=== PATIENT | female | born 1980 | race American Indian/Alaskan Native ===

== ENCOUNTER 2017-03-18 08:43 | Emergency (ER) | payer MEDICAID, OTHER ==
[2017-03-18] MEDS ORDERED: TYLENOL PO ONE (09:24)
[2017-03-18] MEDS ORDERED: TYLENOL ONE (09:29)
[2017-03-18] MEDS ORDERED: FLEXERIL PO ONE (11:59)
[2017-03-18] MEDS ORDERED: TORADOL IM ONE (11:59)
[2017-03-18] MEDS ORDERED: ZOFRAN ODT PO ONE (12:16)
--- NOTE | 2017-03-18 12:18 | Emergency Department Report ---
HPI - General Chief Complaint: Back Pain/Injury Time Seen by Provider: 03/18/17 11:50 - HPI HPI: 36-year-old female presents today complaining of lower back pain 7 this morning. Patient states that she bent down to put on her shoes and since had this pain all across her back. Positive for history of similar symptoms and was seen at [facility], no imaging done, treated with pain medication. Positive for nausea due to pain. Denies radiation of pain. Denies numbness, weakness, paresthesias. Denies bowel or bladder incontinence. Rates her pain as a 10 on a 10 sharp pain. Tried Tylenol without relief. Denies fever, chills , nausea, vomiting, chest pain, shortness of breath, abdominal pain. ED Past Medical Hx - Past Medical History Hx Hypertension: Yes (PIH, Pt still on labetalol, took last PM) Hx Congestive Heart Failure: No Hx Diabetes: No Hx Deep Vein Thrombosis: No Hx Renal Disease: No Hx Sickle Cell Disease: No Hx Headaches / Migraines: Yes (migraines) Hx Seizures: No Hx Asthma: No Hx COPD: No Hx HIV: No Additional medical history: fibroid. polyp - Surgical History Hx Breast Surgery: Yes (left lumpectomy) Additional Surgical History: left breast lumpectomy - Social History Smoking Status: Never Smoker Substance Use Type: None - Medications Home Medications: Home Medications Medication Instructions Recorded Confirmed Last Taken Type Vit-Fe Fumar-FA [ 1 tab PO QDAY 06/22/14 01/03/15 01/02/15 19: 30 History Vitamin] Labetalol [Normodyne TAB] 200 mg PO TID 01/01/15 01/03/15 01/02/15 19:30 History Ibuprofen [Motrin 800 MG tab] 800 mg PO Q8HR PRN #60 tablet 01/03/15 Unknown Rx oxyCODONE /ACETAMINOPHEN [Percocet 1 tab PO Q6HR PRN #30 tablet 01/03/15 Unknown Rx 5/325 mg] Cyclobenzaprine [Flexeril] 10 mg PO TID PRN #20 tablet 03/18/17 Unknown Rx Naproxen [Naprosyn] 500 mg PO BID #30 tablet 03/18/17 Unknown Rx ED Review of Systems ROS: Stated complaint: LOWER BACK PAIN Other details as noted in HPI Constitutional: denies: chills, fever, malaise Eyes: denies: eye pain ENT: denies: ear pain, throat pain, congestion Respiratory: denies: cough, shortness of breath, wheezing Cardiovascular: denies: chest pain, palpitations Endocrine: no symptoms reported Gastrointestinal: nausea. denies: abdominal pain, vomiting Musculoskeletal: back pain Skin: denies: rash Neurological: denies: headache, weakness, numbness, paresthesias Psychiatric: denies: anxiety, depression Physical Exam - Physical Exam Vital Signs: Vital Signs 03/18/17 03/18/17 09:18 12:04 Temperature 98.7 F Pulse Rate 63 Respiratory 16 18 Rate Blood Pressure 138/69 O2 Sat by Pulse 100 Oximetry Physical Exam: GENERAL: The patient is well-developed and well-nourished. Patient is in NAD. HEAD: Normocephalic. Atraumatic. NECK: Supple, nontender, without lymphadenopathy. No meningitic signs are noted. No vertebral or paraspinal tenderness to palpation. BACK: Limited range of motion due to pain. Positive for midline tenderness to palpation of lumbar region. Right-sided paraspinal tenderness to palpation in lumbar region. No tenderness to palpation of sciatic notch bilaterally. Positive for right-sided straight leg raise. CHEST/LUNGS: Clear to auscultation throughout. HEART/CARDIOVASCULAR: Regular rate and rhythm. No murmurs, rubs or gallops. ABDOMEN: Abdomen is soft, nontender. Bowel sounds normoactive. No guarding or rebound tenderness. EXTREMITIES: No cyanosis, clubbing or edema. Peripheral pulses intact. Capillary refill less than 2 seconds. NEURO: Alert and oriented x 3. GCS score of 15. ED Course Vital Signs 03/18/17 03/18/17 09:18 12:04 Temperature 98.7 F Pulse Rate 63 Respiratory 16 18 Rate Blood Pressure 138/69 O2 Sat by Pulse 100 Oximetry ED Medical Decision Making - Lab Data Vital Signs 03/18/17 03/18/17 09:18 12:04 Temperature 98.7 F Pulse Rate 63 Respiratory 16 18 Rate Blood Pressure 138/69 O2 Sat by Pulse 100 Oximetry - Radiology Data Radiology results: report reviewed Lumbar spine: Back pain. Minimal anterior traction spurs are noted at the superior margins of L1, L3, and L4. Vertebral height, alignment, and interspaces are preserved. The bones are well-mineralized. Incidental note are bilateral fallopian tube occlusion clips. Impression: Mild spondylosis. No acute findings identified. - Medical Decision Making 36-year-old female presents today complaining of lower back pain post bending down to put her shoes on. Positive for history of similar symptoms but hasn't been worked up. Her x-ray results reveal no acute findings. Mild spondylosis was noted. Patient has been provided with a referral for orthopedic to follow- up with.Patient is in no acute distress at this time. She will be discharged home and is encouraged to follow up with a primary care provider. She will be sent home on Flexeril and Naprosyn and is encouraged to return to the emergency room for any worsening symptoms. Critical care attestation.: If time is entered above; I have spent that time in minutes in the direct care of this critically ill patient, excluding procedure time. ED Disposition Clinical Impression: Low back strain Qualifiers: Encounter type: initial encounter Qualified Code(s): S39.012A - Strain of muscle, fascia and tendon of lower back, initial encounter Disposition: TO HOME OR SELFCARE Is pt being admited?: No Does the pt Need Aspirin: No Condition: Stable Instructions: Low Back Strain (ED) Additional Instructions: Follow-up with primary care provider. Return to the emergency department if symptoms worsen. Prescriptions: Cyclobenzaprine [Flexeril] 10 mg PO TID PRN #20 tablet PRN Reason: Muscle Spasm Naproxen [Naprosyn] 500 mg PO BID #30 tablet Referrals: ALEXIS VINCENT MD [Primary Care Provider] - 3-5 Days ALEX MUSA MD [Staff Physician] - 3-5 Days Forms: Work/School Release Form(ED) Time of Disposition: 13:21
--- NOTE | 2017-03-18 13:13 | XRay Report ---
Lumbar spine: Back pain. Minimal anterior traction spurs are noted at the superior margins of L1, L3, and L4. Vertebral height, alignment, and interspaces are preserved. The bones are well-mineralized. Incidental note are bilateral fallopian tube occlusion clips. Impression: Mild spondylosis. No acute findings identified.
[2017-03-18 13:35] VITALS: BP 134/68
== END 2017-03-18 13:35 | disposition home or self-care (01) ==
LOC: ED 08:43
DX: S39.012A Strain of muscle, fascia and tendon of lower back, initial encounter (principal); G43.909 Migraine, unspecified, not intractable, without status migrainosus; I10 Essential (primary) hypertension; X50.9XXA Other and unspecified overexertion or strenuous movements or postures, initial encounter; X50.1XXA Overexertion from prolonged static or awkward postures, initial encounter; Y93.89 Activity, other specified; Y92.89 Other specified places as the place of occurrence of the external cause; Y99.8 Other external cause status; Z88.8 Allergy status to other drugs, medicaments and biological substances
CPT/HCPCS: 72100; 96372; 99283; J1885; Q0162

== ENCOUNTER 2017-06-11 09:47 | Emergency (ER) | payer OTHER ==
[2017-06-11 11:03] LABS: Bilirubin,Urine NEG (Negative); Blood,Urine SM (Negative); Color,Urine Yellow (Yellow); Mucus,Urine FEW /HPF; Nitrite,Urine NEG (Negative); Protein,Urine <15 mg/dL mg/dL (Negative); Urobilinogen,Urine < 2.0 mg/dL (<2.0)
[2017-06-11 11:13] LABS: HCG Qualitative,Urine Negative (Negative)
--- NOTE | 2017-06-11 14:49 | Emergency Department Report ---
ED Female HPI - General Chief complaint: Urogenital-Female Stated complaint: PELVIC PAIN Source: patient Mode of arrival: Ambulatory Limitations: No Limitations - History of Present Illness Initial comments: 36 y/o nontoxic in appearance F presents to the ER complaining of yellow vagina discharge, dysuria, and pelvic pain. She states that the discharge and dysuria has been on going for over a week, but the pelvic pain only started this morning. pt states that she was given diflucan by another physician with no relief of the symptoms. pt reports to a 5/10 in severity pain at this time. Pt states that she has also been trying azo with not much relief of symptoms. Pt denies any fever, chills, nausea, vomiting, body aches/muscles aches, LBP, frequency, or urgency. Hx of fibroids and polyps in the past. LMP: May; she reports to vaginal itching and states that it may be due to tampons as she states that as a child she had such itching sensation with tampon use, she states that all tampons were removed. Concern for STD, no hx of past STD. Allergy to codeine. MD Complaint: vaginal discharge, dysuria, pelvic pain, possible STD -: week(s) (1) Location: suprapubic Radiation: suprapubic Severity: moderate Severity scale (0 -10): 5 Quality: dull Consistency: intermittent Improves with: none Worsens with: none Associated Symptoms: vaginal discharge, dysuria - Related Data Sexually active: Yes Home Medications Medication Instructions Recorded Confirmed Last Taken Vit-Fe Fumar-FA [ 1 tab PO QDAY 06/22/14 01/03/15 01/02/15 19: 30 Vitamin] Labetalol [Normodyne TAB] 200 mg PO TID 01/01/15 01/03/15 01/02/15 19:30 Previous Rx's Medication Instructions Recorded Last Taken Type Ibuprofen [Motrin 800 MG tab] 800 mg PO Q8HR PRN #60 tablet 01/03/15 Unknown Rx oxyCODONE /ACETAMINOPHEN [Percocet 1 tab PO Q6HR PRN #30 tablet 01/03/15 Unknown Rx 5/325 mg] Cyclobenzaprine [Flexeril] 10 mg PO TID PRN #20 tablet 03/18/17 Unknown Rx Naproxen [Naprosyn] 500 mg PO BID #30 tablet 03/18/17 Unknown Rx Doxycycline Hyclate [Doxycycline 100 mg PO Q12HR #28 tab 06/11/17 Unknown Rx Hyclate TAB] metroNIDAZOLE [Flagyl] 500 mg PO Q12HR #28 tab 06/11/17 Unknown Rx Allergies Allergy/AdvReac Type Severity Reaction Status Date / Time codeine AdvReac Itching Verified 06/11/17 10:00 ED Review of Systems ROS: Stated complaint: PELVIC PAIN Other details as noted in HPI Constitutional: denies: chills, fever Eyes: denies: eye pain, eye discharge, vision change ENT: denies: ear pain, throat pain Respiratory: denies: cough, shortness of breath, wheezing Cardiovascular: denies: chest pain, palpitations Gastrointestinal: denies: abdominal pain, nausea, diarrhea Genitourinary: dysuria, discharge. denies: urgency Musculoskeletal: denies: back pain, joint swelling, arthralgia Skin: denies: rash, lesions Neurological: denies: headache, weakness, paresthesias Psychiatric: denies: anxiety, depression Hematological/Lymphatic: denies: easy bleeding, easy bruising ED Past Medical Hx - Past Medical History Hx Hypertension: Yes (PIH, Pt still on labetalol, took last PM) Hx Congestive Heart Failure: No Hx Diabetes: No Hx Deep Vein Thrombosis: No Hx Renal Disease: No Hx Sickle Cell Disease: No Hx Headaches / Migraines: Yes (migraines) Hx Seizures: No Hx Asthma: No Hx COPD: No Hx HIV: No Additional medical history: fibroid. polyp - Surgical History Past Surgical History?: Yes Hx Breast Surgery: Yes (left lumpectomy) Additional Surgical History: left breast lumpectomy - Social History Smoking Status: Never Smoker Substance Use Type: None - Medications Home Medications: Home Medications Medication Instructions Recorded Confirmed Last Taken Type Vit-Fe Fumar-FA [ 1 tab PO QDAY 06/22/14 01/03/15 01/02/15 19: 30 History Vitamin] Labetalol [Normodyne TAB] 200 mg PO TID 01/01/15 01/03/15 01/02/15 19:30 History Ibuprofen [Motrin 800 MG tab] 800 mg PO Q8HR PRN #60 tablet 01/03/15 Unknown Rx oxyCODONE /ACETAMINOPHEN [Percocet 1 tab PO Q6HR PRN #30 tablet 01/03/15 Unknown Rx 5/325 mg] Cyclobenzaprine [Flexeril] 10 mg PO TID PRN #20 tablet 03/18/17 Unknown Rx Naproxen [Naprosyn] 500 mg PO BID #30 tablet 03/18/17 Unknown Rx Doxycycline Hyclate [Doxycycline 100 mg PO Q12HR #28 tab 06/11/17 Unknown Rx Hyclate TAB] metroNIDAZOLE [Flagyl] 500 mg PO Q12HR #28 tab 06/11/17 Unknown Rx ED Physical Exam - General Limitations: No Limitations General appearance: alert, in no apparent distress - Head Head exam: Present: atraumatic, normocephalic - Eye Eye exam: Present: normal appearance - ENT ENT exam: Present: mucous membranes moist - Neck Neck exam: Present: normal inspection - Respiratory Respiratory exam: Present: normal lung sounds bilaterally. Absent: respiratory distress - Cardiovascular Cardiovascular Exam: Present: regular rate, normal rhythm. Absent: systolic murmur, diastolic murmur, rubs, gallop - GI/Abdominal GI/Abdominal exam: Present: soft, other (suprapubic tendnerness) - External exam: Present: normal external exam, other (bright cutter was present during speculum and bi-manual examinations) Speculum exam: Present: vaginal discharge (profuse frothy yellow-green discharge noted, that was covering close to 40% of the cervix) Bi-manual exam: Present: cervical motion tendernes, uterine tenderness ( appeared to be consistent with PID), other (no evidence of foreign bodies). Absent: uterine enlargement - Extremities Exam Extremities exam: Present: normal inspection - Back Exam Back exam: Present: normal inspection, full ROM, other (no CVAT b/l, no LBP) - Neurological Exam Neurological exam: Present: alert, oriented X3, CN II-XII intact, normal gait - Expanded Neurological Exam Expanded Patient oriented to: Present: person, place, time Speech: Present: fluid speech Best Eye Response ([place]): (4) open spontaneously Best Motor Response ([place]atalya): (6) obeys commands Best Verbal Response ([place]): (5) oriented Natalya Total: 15 - Psychiatric Psychiatric exam: Present: normal affect, normal mood - Skin Skin exam: Present: warm, dry, intact, normal color. Absent: rash ED Course Vital Signs 06/11/17 06/11/17 09:57 16:23 Temperature 98.6 F 98.2 F Pulse Rate 68 68 Respiratory 16 18 Rate Blood Pressure 125/50 Blood Pressure 133/80 [Right] O2 Sat by Pulse 98 100 Oximetry ED Medical Decision Making - Medical Decision Making I will treat as a PID infection at this time, as she had suprapubic pain and mild pain on bimanual examination. I will treat today pending the GC/chlaymdia results. I will treat with ceftriaxone and doxycycline at this time. I will also give flagyl as the wet prep was positive for Trichomonas and BV. Urinanalysis showed small blood and leukocytes, no nitrites at this time. I will send out a urine culture at this time to confirm a UTI and we will treat if bacterial growth is evident. Pt was encouraged to follow-up with OBGYN within the week, she was discharged in stable condition, alert and oriented, no resp distress, speaking in full sentences. I spoke with the attending regarding this case, he does not recommend Ultrasound imaging at this time. Advised to try pads instead of tampons, since she states that tampons are causing itching and skin irritation. Critical care attestation.: If time is entered above; I have spent that time in minutes in the direct care of this critically ill patient, excluding procedure time. ED Disposition Clinical Impression: Bacterial vaginosis, Trichomonal infection Disposition: - TO HOME OR SELFCARE Is pt being admited?: No Does the pt Need Aspirin: No Condition: Stable Instructions: Doxycycline (By mouth), Metronidazole (By mouth), Ceftriaxone ( Injection), Pelvic Inflammatory Disease (ED), Bacterial Vaginosis (ED), Safe Sex (ED), Trichomoniasis (ED) Additional Instructions: Please complete your full course of antibiotic. Please do not drink alcohol while on the flagyl and 2 weeks after. Please take probiotic with this medication. Please follow-up with OBGYN within 1 week. PCP follow-up within 3- 5 days. Return to the ER immediately if your presenting symptoms acutely progress or worsen. Prescriptions: Doxycycline Hyclate [Doxycycline Hyclate TAB] 100 mg PO Q12HR #28 tab metroNIDAZOLE [Flagyl] 500 mg PO Q12HR #28 tab Referrals: PRIMARY CAREMD [Primary Care Provider] - 3-5 Days KANDIS STYLES MD [Staff Physician] - 3-5 Days MAKEDA MATHEW MD [Staff Physician] - 3-5 Days [facility] [Outside] - 3-5 Days [facility] [Outside] - 3-5 Days Forms: STI Treatment and Prevention, Work/School Release Form(ED)
[2017-06-11] MEDS ORDERED: ROCEPHIN IM ONE (15:41)
[2017-06-11] MEDS ORDERED: XYLOCAINE 1% MPF 5 mL INFILTRATI ONE (15:41)
[2017-06-11 16:23] VITALS: BP 133/80
== END 2017-06-11 16:23 | disposition home or self-care (01) ==
LOC: ED 09:47
DX: A59.8 Trichomoniasis of other sites (principal); N76.0 Acute vaginitis; B96.89 Other specified bacterial agents as the cause of diseases classified elsewhere; I10 Essential (primary) hypertension; G43.909 Migraine, unspecified, not intractable, without status migrainosus; Z88.5 Allergy status to narcotic agent
CPT/HCPCS: 81001; 81025; 87086; 87210; 87591; 96372; 99284; J0696

== ENCOUNTER 2017-07-12 20:12 | Emergency (ER) | payer OTHER ==
[2017-07-12 20:37] VITALS: BP 155/99
[2017-07-12 21:22] LABS: Eosinophils # (Auto) 0.1 K/mm3 (0.0-0.4); Eosinophils % (Auto) 2.4 % (0.0-4.3); Hematocrit 36.6 % (30.3-42.9); Hemoglobin 12.5 gm/dl (10.1-14.3); Lymphocytes # (Auto) 0.9 K/mm3 (1.2-5.4); Lymphocytes % (Auto) 22.3 % (13.4-35.0); Mean Corpuscular HGB Conc 34 % (30-34); Mean Corpuscular Hemoglobin 32 pg (28-32); Mean Corpuscular Volume 94 fl (79-97); Monocytes # (Auto) 0.4 K/mm3 (0.0-0.8); Monocytes % (Auto) 8.5 % (0.0-7.3); Platelet Count 280 K/mm3 (140-440); Red Blood Count 3.88 M/mm3 (3.65-5.03); Red Cell Distribution Width 12.3 % (13.2-15.2)
[2017-07-12 21:45] LABS: Alanine Aminotransferase 27 units/L (7-56); Albumin 4.4 g/dL (3.9-5); BUN/Creatinine Ratio 20; Blood Urea Nitrogen 8 mg/dL (7-17); Calcium 8.8 mg/dL (8.4-10.2); Hemolysis Index 6; Lipase 18 units/L (13-60)
== END 2017-07-13 02:00 | disposition left against medical advice (07) ==
LOC: ED 20:12
DX: R10.9 Unspecified abdominal pain (principal); Z53.21 Procedure and treatment not carried out due to patient leaving prior to being seen by health care provider
CPT/HCPCS: 36415; 80048; 80053; 82150; 83690; 85025

== ENCOUNTER 2021-06-24 06:13 | Observation (INO) | payer BC, OTHER ==
--- NOTE | 2021-06-18 09:52 | Anesthesia Consultation ---
Anesthesia Consult and Med Hx Date of service: 06/24/21 - Airway Anesthetic Teeth Evaluation: Good ROM Head & Neck: Adequate Mental/Hyoid Distance: Adequate Mallampati Class: Class II Intubation Access Assessment: Good - Pre-Operative Health Status ASA Pre-Surgery Classification: ASA2 Proposed Anesthetic Plan: General Nerve Block: TAP - Pulmonary Hx Smoking: No Hx Asthma: No Hx Respiratory Symptoms: No (+2FS) COPD: No Hx Pneumonia: No - Cardiovascular System Hx Hypertension: Yes (PIH ) Hx Heart Murmur: Yes ("resolved") - Central Nervous System Hx Seizures: No Hx Psychiatric Problems: No - Gastrointestinal Hx Gastroesophageal Reflux Disease: No (S/P Gastric bypass 2013) - Endocrine Hx Renal Disease: No Hx Hypothyroidism: No Hx Hyperthyroidism: No - Hematic Hx Anemia: Yes Hx Sickle Cell Disease: No - Other Systems Hx Alcohol Use: Yes (Occas) Hx Cancer: No Hx Obesity: Yes
[2021-06-18 09:57] LABS: Hematocrit 27.1 % (30.3-42.9); Hemoglobin 8.3 gm/dl (10.1-14.3); Mean Corpuscular HGB Conc 31 % (30-34); Mean Corpuscular Volume 75 fl (79-97); Platelet Count 380 K/mm3 (140-440); Red Blood Count 3.63 M/mm3 (3.65-5.03); Red Cell Distribution Width 19.2 % (13.2-15.2)
[2021-06-18 16:57] LABS: Eosinophils # (Auto) 0.1 K/mm3 (0.0-0.4); Eosinophils % (Auto) 2.5 % (0.0-4.3); Monocytes # (Auto) 0.5 K/mm3 (0.0-0.8)
[2021-06-18 17:01] LABS: Lymphocytes % (Auto) 11.8 % (13.4-35.0)
[2021-06-18 17:02] LABS: Basophils % (Auto) 0.8 % (0.0-1.8); Monocytes % (Auto) 11.8 % (0.0-7.3)
[~2021-06-24 06:13] MED LIST: ACETAMINOPHEN 500 MG TAB PO NR; BUPIVACAINE/PF (0.25%) 2.5 MG/ML 30 ML VIAL INFILTRATI NR; CELECOXIB 200 MG CAP PO NR; GABAPENTIN 300 MG CAP PO NR; LACTATED RINGERS 1,000 ML IV SCH; MAGNESIUM OXIDE 400 MG TAB PO NR; dexAMETHasone 4 MG/ML VIAL IV NR; fentaNYL 100 MCG/2 ML INJ IV NR
[2021-06-24] MEDS ORDERED: NEOMY 40 MG/POLYMYXIN B 200,000 UNITS/ML (GU) AMPULE IR ONE ×2 (07:15→09:06)
[2021-06-24] MEDS ORDERED: propofoL 200 MG/20 ML VIAL IV ONE (07:23)
[2021-06-24] MEDS ORDERED: LIDOCAINE MPF (2%) 20 MG/1 ML VIAL 5 ML ONE (07:23)
[2021-06-24] MEDS ORDERED: fentaNYL 100 MCG/2 ML INJ ONE (07:23)
[2021-06-24] MEDS ORDERED: ROCURONIUM 50 MG/5 ML INJ IV ONE (07:23)
[2021-06-24] MEDS ORDERED: SODIUM CHLORIDE 0.9% 500 ML 500 ML IV NR (07:23)
--- NOTE | 2021-06-24 07:26 | Short Stay Summary ---
Short Stay Documentation Date of service: 06/24/21 Narrative H&P: 41-year-old -1-0-2 with a history of dysfunctional uterine bleeding. The patient has experienced 6 significant menorrhagia that has contributed to her iron deficiency anemia with a current hemoglobin of 8.3. Patient has attempted medical management without significant improvement in her symptoms. She has no future desire for childbearing and has elected to undergo definitive surgical management. - History Principal diagnosis: Dysfunctional uterine bleeding Past Medical History: No medical history Past Surgical History: , Other (Gastric bypass surgery; tubal ligation my: Lumpectomy of left breast) Social history: single - Allergies and Medications Current Medications: Allergies codeine Adverse Reaction (Verified 06/17/21 16:12) Itching Home Medications Medication Instructions Recorded Confirmed Last Taken Type No Known Home Medications [No 06/17/21 06/17/21 Unknown History Reported Home Medications] Active Medications Acetaminophen (Acetaminophen 500 Mg Tab) 1,000 mg PO ONCE NR Stop: 06/24/21 20:00 Bupivacaine HCl (Bupivacaine/Pf (0.25%) 2.5 Mg/Ml 30 Ml Vial) 60 ml INFILTRATI ONCE NR Stop: 06/24/21 20:00 Celecoxib (Celecoxib 200 Mg Cap) 400 mg PO PREOP NR Stop: 06/24/21 20:00 Dexamethasone (Dexamethasone 4 Mg/Ml Vial) 8 mg IV PREOP NR Stop: 06/24/21 20:00 Fentanyl (Fentanyl 100 Mcg/2 Ml Inj) 100 mcg IV ONCE NR Stop: 06/24/21 20:00 Gabapentin (Gabapentin 300 Mg Cap) 300 mg PO PREOP NR Stop: 06/24/21 20:00 Lactated Ringer's (Lactated Ringers) 1,000 mls @ 125 mls/hr IV DIRECT RONNA Magnesium Oxide (Magnesium Oxide 400 Mg Tab) 400 mg PO ONCE NR Stop: 06/24/21 20:00 Methocarbamol (Methocarbamol 750 Mg Tab) 1,500 mg PO ONCE NR Stop: 06/24/21 20:00 Midazolam HCl (Midazolam 2 Mg/2 Ml Inj) 2 mg IV PREOP NR Stop: 06/24/21 23:59 - Physical exam General appearance: no acute distress Integumentary: no rash HEENT: Atraumatic Lungs: Clear to auscultation Breasts: deferred Heart: Regular rate Gastrointestinal: normal Female Genitourinary: deferred - Brief post op/procedure progress note Date of procedure: 06/24/21 Pre-op diagnosis: Dysfunctional uterine bleeding Post-op diagnosis: same Procedure: Robotic hysterectomy Bilateral salpingectomy Lysis of adhesions Anesthesia: KIMBERLY Surgeon: JAMESON CARSON Estimated blood loss: other (400ml) Pathology: list (uterus, tubes, ovarian cyst) Specimen disposition: to lab Condition: stable - Hospital course Hospital course: Patient underwent a robotic hysterectomy. See op note. The patient requested to be admitted. Postop uneventful - Disposition Condition at discharge: Good Disposition: 01 HOME / SELF CARE / HOMELESS Short Stay Discharge Plan Activity: other (pelvic rest for 6 weeks) Diet: regular Additional Instructions: scheduled followup appointment in 4 weeks
[2021-06-24] MEDS ORDERED: HYDROmorphone 1 MG/1 ML INJ IV PRN (07:32)
--- NOTE | 2021-06-24 07:32 | Anesthesia Day of Surgery ---
Anesthesia Day of Surgery - Day of Surgery Patient Examined: Yes Patient H&P Reviewed: Yes Patient is NPO: Yes
[2021-06-24] MEDS: MIDAZOLAM 2 MG/2 ML INJ IV NR ×2 (07:36→07:40)
[2021-06-24] MEDS ORDERED: ceFAZolin/Water 2 GM/20 ML 2 GM/20 ML SYRINGE IV NR (08:00)
[2021-06-24] MEDS ORDERED: ONDANSETRON 4 MG/2 ML INJ IV PRN (08:00)
[2021-06-24] MEDS ORDERED: SODIUM CHLORIDE 0.9% 100 ML ONE (09:00)
[2021-06-24] MEDS ORDERED: HYDROmorphone 1 MG/1 ML INJ ONE (09:05)
[2021-06-24] MEDS ORDERED: SODIUM CHLORIDE 0.9% IRR 1,500 ML BOTTLE IR ONE (09:07)
[2021-06-24] MEDS ORDERED: SODIUM CHLORIDE 0.9% IRRIG SOLN 2000 ML IR ONE (09:07)
[2021-06-24] MEDS ORDERED: ESMOLOL 100 MG/10 ML INJ IV ONE (09:22)
[2021-06-24] MEDS ORDERED: ONDANSETRON 4 MG/2 ML INJ ONE (09:48)
[2021-06-24] MEDS ORDERED: D5W/LACTATED RINGERS 1,000 ML IV SCH (10:00)
--- NOTE | 2021-06-24 10:06 | Operative Report ---
Operative Report Operative Report: Date of surgery: June 24, 2021 Preoperative diagnoses: Dysfunctional uterine bleeding; uterine fibroids; iron deficiency anemia; right ovarian cyst Postoperative diagnoses: Same as above; pelvic adhesive disease Procedure: Robotic hysterectomy; bilateral salpingectomy; lysis of adhesions; right ovarian cystectomy Surgeon: Kerry Noe M.D. Patient Care Representative: Yulia Greer Anesthesia: Gen. endotracheal anesthesia Estimated blood loss: 400 mL Pathology: Uterus, cervix, bilateral tubes, right ovarian cyst Indication: 41-year-old -0-0-2 with a history of dysfunctional uterine bleeding. The patient has significant iron deficiency anemia had to be transfused 1 unit packed red blood cells prior to surgery. Procedure: The patient was taken to the operating room and given general endotracheal anesthesia without complication after a time out was performed confirming the surgery and identity of the patient. She was prepped and draped in a normal sterile fashion. A bivalve speculum was placed in the patient's vagina and a single-tooth tenaculum placed on the anterior lip of the cervix. The uterus was sounded with the uterine sound. A stay suture with 0-vicryl was placed at 12 o'clock on the anterior cervix. A [employer] uterine manipulator was placed in the bivalve speculum was then removed. A warm laparotomy sponge was placed in the vagina. Attention was then turned to the patient's abdomen where a 12millimeter supra umbilical skin incision was then made. A Veress needle was placed and peritoneal entry was verified water-filled syringe. Insufflation of the peritoneal cavity was performed with CO2 gas. The 12 mm trocar was then placed under direct visualization. An additional 8 mm robotic trocar was placed on the patient's left and right lateral side just opposite of the supraumbilical trocar. An additional 5 mm right lateral trocar was then placed as the accessory port. The supraumbilical 12 mm trocar site was closed with the Rickie Matthews device and 0-vicryl suture. The patient was then placed in steep Trendelenburg. The [employer] robot was then engaged. A fenestrated forcep was placed in arm 2 and a vessel sealer was placed in arm 1. General survey of the abdomen and pelvis revealed a right ovarian cyst. There was evidence of adhesions to the posterior aspect of the uterus. The vesicouterine peritoneum was adherent to the anterior surface of the uterus. The surgeon then transferred to the surgical console. The mesosalpinx was then isolated on the right. The vessel sealer was used to coagulate the mesosalpinx which was then transected. The tube was transected from the ovary. The tubo-ovarian ligament was then coagulated and transected. The round ligament was then coagulated and transected also. The vesicouterine peritoneum was then entered from the patient's right side. The uterine vessels were then coagulated with the vessel sealer. The vessels were then transected . Attention was then turned to the patient's left side where the tubo-ovarian ligament and mesosalpinx were again isolated coagulated and transected. The vesical peritoneum was then entered from the left and joined in the midline. Peritoneum was reflected off of the lower uterine segment. Uterine vessels were then coagulated and then transe cted. The blood supply to the uterus was adequately contained, an anterior colpotomy was made. The V care ring was visualized. Secondary to the adhesions to the posterior aspect of the uterus a supracervical hysterectomy was performed with detachment of the cervix from the corpus of the uterus. Posterior colpotomy was created with the monopolar scissors. With sharp dissection the uterus was released from the peritoneal adhesions. The incision was continued circumferentially. The cervix and uterus were amputated from the vaginal cuff. A right ovarian cystectomy was performed with findings consistent with an endometrioma. The uterus was then removed along with the tubes bilaterally through the vagina and a warm laparotomy sponge was placed and maintain the pneumoperitoneum. The vaginal cuff was then closed in a running fashion with V lock suture. Irrigation of the pelvis was performed. Surgicel powder was applied to the incision. The [employer] robot was undocked. The trocars were removed and the insuffliation was released. The skin was then reapproximated with 4-0 Monocryl. The tissue was sent to pathology which included the cervix, bilateral tubes and uterus. The patient was then successfully extubated. She was then taken to the recovery room in stable condition. All sponge laps and needle counts were correct x2.
[2021-06-24] MEDS ORDERED: ACETAMINOPHEN 325 MG TAB PO PRN (10:30)
[2021-06-24] MEDS: HYDROmorphone 1 MG/1 ML INJ IV PRN ×2 (10:50→11:05)
[2021-06-24] MEDS ORDERED: MORPHINE 4 MG/1 ML INJ IV PRN (11:00)
[2021-06-24] MEDS ORDERED: IBUPROFEN 800 MG TAB PO PRN (11:00)
[2021-06-24] MEDS ORDERED: KETOROLAC 30 MG/1 ML INJ IV PRN (11:00)
[2021-06-24] MEDS ORDERED: ONDANSETRON 4 MG/2 ML INJ IM PRN (11:00)
[2021-06-24] MEDS ORDERED: diphenhydrAMINE 50 MG/ML VIAL IV PRN (11:05)
[2021-06-24] MEDS ORDERED: diphenhydrAMINE 50 MG/ML VIAL ONE (11:07)
[2021-06-24] MEDS: ONDANSETRON 4 MG/2 ML INJ IV PRN ×2 (15:42→22:45)
--- NOTE | 2021-06-24 17:45 | Post Anesthesia Evaluation ---
- Post Anesthesia Evaluation Patient Participated: Yes Airway Patent: Yes Stable Respiratory Function: Yes Nausea/Vomiting: No Temp > 96.8F: Yes Pain Manageable: Yes Adequeate Hydration: Yes Anesthesia Complications: No Block Receding Appropriately: Yes Patient on Ventilator: No
[2021-06-24] MEDS: oxyCODONE /ACETAMINOPHEN 5-325MG TAB PO PRN (20:59)
[2021-06-25] MEDS: SIMETHICONE 80 MG CHEW TAB PO PRN ×3 (00:49→12:04)
[2021-06-25] MEDS: oxyCODONE /ACETAMINOPHEN 5-325MG TAB PO PRN ×2 (05:37→12:04)
[2021-06-25 06:01] LABS: Hematocrit 26.4 % (30.3-42.9)
--- NOTE | 2021-06-25 08:21 | Progress Note ---
Assessment and Plan - Patient Problems (1) H/O: hysterectomy Current Visit: Yes Status: Acute Plan to address problem: continue to monitor closely discharge home today Subjective - Subjective Date of service: 06/25/21 Principal diagnosis: Dysfunctional uterine bleeding Interval history: Patient having difficulty passing flatus. She is voiding without difficulty. Attempting to manage pain better Patient reports: voiding normally, no flatus Objective - Vital Signs Latest vital signs: Vital Signs Temp Pulse Pulse Resp BP BP Pulse Ox 06/25/21 06:37 18 06/25/21 05:37 18 06/25/21 04:00 98.6 F 69 16 125/78 06/25/21 00:00 98.6 F 74 16 107/74 06/24/21 22:00 80 18 99 06/24/21 21:59 18 06/24/21 20:59 18 06/24/21 19:51 98.0 F 110 H 18 109/69 100 06/24/21 15:47 98.9 F 100 H 22 125/83 99 06/24/21 14:33 100 06/24/21 13:00 98.5 F 86 16 148/89 100 06/24/21 12:50 98.6 F 87 16 141/86 99 06/24/21 12:35 87 16 135/87 99 06/24/21 12:14 96 H 16 135/68 100 06/24/21 12:00 87 16 141/78 100 06/24/21 11:45 84 16 144/96 100 06/24/21 11:30 74 14 149/92 100 06/24/21 11:15 79 14 136/87 100 06/24/21 11:00 87 14 142/91 100 06/24/21 10:45 91 H 14 125/83 100 06/24/21 10:40 88 14 138/80 100 06/24/21 10:35 91 H 14 139/81 100 06/24/21 10:30 87 16 131/83 100 06/24/21 10:25 86 20 140/86 100 06/24/21 10:20 103 H 22 130/81 100 06/24/21 10:17 97 F L 105 H 20 114/69 100 Intake and Output 06/24/21 06/25/21 06/25/21 22:59 06:59 14:59 Intake Total 1020 Output Total 1050 850 Balance -30 -850 Intake: Oral 720 Intake, Free Water 300 Output: Urine 1050 850 Void 750 850 Other: Total, Intake Amount 240 Total, Output Amount 300 600 Voiding Method Toilet # Voids Void 1 1 - Labs Labs: Abnormal lab results 06/24/21 06/25/21 Range/Units 06:38 05:33 Hgb 8.0 L (10.1-14.3) gm/dl Hct 26.4 L (30.3-42.9) % Crossmatch See Detail
[2021-06-25 10:15] LABS: Alanine Aminotransferase 15 units/L (7-56); Albumin 3.6 g/dL (3.9-5); Blood Urea Nitrogen 5 mg/dL (7-17); Hemolysis Index 102
[2021-06-25 10:19] LABS: BUN/Creatinine Ratio 10
--- NOTE | 2021-06-25 11:37 | Cat Scan Report ---
CT CHEST WITH CONTRAST INDICATION / CLINICAL INFORMATION: Chest pain 100 ml omni 300 . TECHNIQUE: Axial CT images were obtained through the chest after IV contrast. All CT scans at this formerly [facility] are performed using CT dose reduction for ALARA by means of automated exposure control. COMPARISON: None available. FINDINGS: HEART: No significant abnormality. CORONARY ARTERY CALCIFICATION: None. THORACIC AORTA: No significant abnormality. MEDIASTINUM / MARINA: No significant abnormality. PLEURA: No pleural effusion. No pneumothorax. LUNGS: No acute air space or interstitial disease. Mild dependent subsegmental atelectasis bilateral lower lobes. ADDITIONAL FINDINGS: None. UPPER ABDOMEN: Small amount of pneumoperitoneum noted within the upper abdomen. SKELETAL SYSTEM: No significant abnormality. IMPRESSION: 1. Mild dependent subsegmental atelectasis within the bilateral lower lobes. Otherwise, no acute int rathoracic abnormality 2. Small amount of pneumoperitoneum noted within the upper abdomen. This would be an expected findin g if patient has had recent abdominal surgery. However, if there is no recent surgical history, recom mend further evaluation with a stat CT abdomen and pelvis. Signer Name: Cristofer Gunter MD Signed: 06/25/2021 11:33 AM Workstation Name: [id number]
--- NOTE | 2021-06-25 12:07 | Post Anesthesia Evaluation ---
- Post Anesthesia Evaluation Patient Participated: Yes Airway Patent: Yes Stable Respiratory Function: Yes (complaint of SOB Chest CT completed. respirations unlabored ) Nausea/Vomiting: No Temp > 96.8F: No Pain Manageable: Yes (recieving morphine, states TAP block didn't work) Adequeate Hydration: Yes Anesthesia Complications: No Block Receding Appropriately: Yes Patient on Ventilator: No
[2021-06-25 16:24] VITALS: BP 122/75
== END 2021-06-25 16:38 | disposition home or self-care (01) ==
LOC: OR 06:13 → OB 11:21
PROVIDERS: ADMIT Obstetrics & Gynecology; ATTEND Obstetrics & Gynecology
DX: N93.8 Other specified abnormal uterine and vaginal bleeding (principal); Z20.822 Contact with and (suspected) exposure to COVID-19; D25.9 Leiomyoma of uterus, unspecified; D64.9 Anemia, unspecified; N83.201 Unspecified ovarian cyst, right side; Z98.891 History of uterine scar from previous surgery; Z98.84 Bariatric surgery status; Z98.51 Tubal ligation status; Z79.899 Other long term (current) drug therapy; Z98.890 Other specified postprocedural states
CPT/HCPCS: 36415; 58552; 64488; 71260; 80053; 84703; 85014; 85018; 85025; 86850; 86900; 86901; 86920; 88305; 88307; 96374; 96375; 96376; G0378; J0690; J1100; J1170; J1200; J1885; J2250; J2270; J2405; J2704; J3010; J3490; J7120; J7121; P9016; Q9967; S2900; U0003; 64450; J7060